=== PATIENT | male | born 1995 | race Caucasian/White ===

== ENCOUNTER 2021-01-31 00:05 | Emergency (ER) | payer SELFPAY ==
[2021-01-31 00:06] VITALS: BP 166/100; PULSE 108; RESP 16; TEMP 36.7; O2SAT 97; BMI 29.2
--- NOTE | 2021-01-31 00:20 | PC.NURSE ---
called lab for lab draw for PD
--- NOTE | 2021-01-31 00:31 | HMH.EDMCLR ---
ED Disposition Clinical Impression: Medical clearance for incarceration Disposition: Home, Self-Care Condition on Discharge: Good Instructions: DI for Alcohol Use Disorder Additional Instructions: see pcp for follow up Referrals: Chris Spence MD [Primary Care Provider] - - Critical Care Critical Care Time: No Attestation: On 01/31/21, the high probability of a clinically significant, sudden or life threatening deterioration of the following system(s) required my full and direct attention, intervention and personal management. The time I documented below is in addition to time spent performing reported procedures but includes the following listed in this critical care notation. Medical Decision Making - Medical Records Medical records reviewed: Yes: I reviewed the patient's medical records. - Benji Inquiry Pt receiving controlled substance: No Vital Signs: 01/31/21 00:06 Temperature 98.1 F Temperature Source Oral Pulse Rate [Left Radial] 108 H Respiratory Rate 16 Blood Pressure [Right Arm] 166/100 H Blood Pressure Mean [Right Arm] 122 Blood Pressure Source [Right Arm] Automatic Cuff Blood Pressure Position [Right Arm] Sitting 02 Sat by Pulse Oximetry 97 Oxygen Delivery Method Room Air - Lab Data Lab results reviewed: Yes: I reviewed the patient's lab results. Medical Clearance HPI - General Chief complaint: Medical Clearance Stated complaint: Medical Clearance and Blood draw Time Seen by Provider: 01/31/21 00:31 Mode of Arrival: Ambulatory Source of Information: Patient, Medical Record Limitations: No Limitations Description of Symptoms (Recalled from ER Triage Doc. by RN): Pt brought in by PD for medical clearance. Pt has no complaints reported to staff. - History of Present Illness HPI Narrative: no specific c/o MD complaint: medical clearance requested Onset (ago): hour(s) Reason for Medical Clearance: intoxication Place: street Alleged Intoxication: Yes Traumatic Symptoms: denies traumatic injury Associated Symptoms: denies other symptoms Treatments Prior to Arrival: none Home medications: Home Medications Medication Instructions Recorded Confirmed No Known Home Medications 01/31/21 01/31/21 Allergies/Adverse reactions: Allergies Allergy/AdvReac Type Severity Reaction Status Date / Time No Known Allergies Allergy Verified 10/09/19 17:51 [facility] History - Hepatitis A Screen Drug use history?: No High risk sexual behaviors?: No History of sexually transmitted infection?: No Currently employed?: No Childcare worker?: No Do you have indoor plumbing?: Yes Do you have electricity?: Yes Attestation statement:: This patient has been screened for Hepatitis A risk factors. I have reviewed the patient's past medical history: Yes ROS Obtained: Yes All systems reviewed & no additional complaints - Constitutional Constitutional: Denies fever(s) - Eyes Eyes: Denies change in vision - ENT Ears, Nose, Mouth, and Throat: Denies sore throat - Cardiovascular Cardiovascular: Denies chest pain - Respiratory Respiratory: Denies shortness of breath - Gastrointestinal Gastrointestingal: Denies: abdominal pain - Genitourinary Male Genitourinary: Denies hematuria - Musculoskeletal Musculoskeletal: Denies joint pain - Integumentary/Breasts Skin/Breast: Denies lesions - Neurologic Neurologic: Denies focal weakness, Denies seizure-like activity Physical Exam - General General appearance: alert - Head Head exam: normocephalic - Eye Eye exam: Present: PERRL, EOMI - ENT ENT exam: Present: mucous membranes moist - Neck Neck exam: Present: trachea midline - Respiratory Respiratory exam: Present: normal lung sounds bilaterally. Absent: respiratory distress - Cardiovascular Cardiovascular exam: Present: regular rate - Abdominal Exam Abdominal exam: Present: soft. Absent: tenderness - Extremities Exam Extremities exam: Present:
[2021-01-31 00:33] VITALS: BP 148/94; PULSE 105; RESP 18; O2SAT 97
[2021-01-31 00:41] VITALS: BP 145/87; PULSE 108; RESP 18; TEMP 36.8; O2SAT 97
== END 2021-01-31 00:45 | disposition home or self-care (01) ==
PROVIDERS: Emergency Provider Emergency Medicine; PCP Family Medicine
DX: Z02.83 Encounter for blood-alcohol and blood-drug test (principal)
CPT/HCPCS: 99282

== ENCOUNTER 2021-07-29 12:34 | Emergency (ER) | payer OTHER, SELFPAY ==
[2021-07-29 14:05] VITALS: BP 138/95; PULSE 80; RESP 18; TEMP 36.8; O2SAT 98; BMI 30.8
[2021-07-29 14:21] LABS: Apearance,Urine Cloudy (Clear); Color,Urine Dark Yellow (Yellow); Protein,Urine Trace (Negative); Specific Gravity, Urine 1.025 (1.005-1.030)
[2021-07-29 14:22] LABS: Bilirubin,Urine Negative (Negative); Blood, Urine Trace (Negative); Glucose,Urine (UA) Negative (Negative); Ketones,Urine Negative (Negative); UTC Leukocyte Esterase,Urine 1+ (Negative); Urobilinogen,Urine 0.2 EU/dl (0.2)
[2021-07-29 14:23] LABS: UTC Nitrate,Urine Positive (Negative)
--- NOTE | 2021-07-29 14:37 | HMH.EDUTC ---
[facility] [place] Disposition Clinical Impression: UTI (urinary tract infection) Qualifiers: Urinary tract infection type: site unspecified Hematuria presence: with hematuria Qualified Code(s): N39.0 - Urinary tract infection, site not specified Disposition: Home, Self-Care Condition on Discharge: Good Instructions: DI for Urinary Tract Infection (UTI) Additional Instructions: Drink plenty of fluids. Take tylenol or ibuprofen for pain or fever. Take the medications as directed. Follow up with your regular doctor. GO TO THE ER FOR ANY WORSENING SYMPTOMS Prescriptions: Sulfamethoxazole/Trimethoprim [Bactrim DS tablet] 1 each PO BID 10 Days #20 tab Transmission Status: Received by [facility] Referrals: Chris Spence MD [Primary Care Provider] - Time of Disposition: 14:42 Medical Decision Making - Medical Records Medical records reviewed: No: I reviewed the patient's medical records. - Benji Inquiry Pt receiving controlled substance: No Vital Signs: 07/29/21 14:05 07/29/21 14:38 Temperature 98.3 F 98.3 F Temperature Source Oral Pulse Rate 80 Pulse Rate [Left] 80 Respiratory Rate 18 18 Blood Pressure 138/95 H Blood Pressure [Right Arm] 138/95 H Blood Pressure Mean [Right Arm] 109 02 Sat by Pulse Oximetry 98 - Lab Data Lab results reviewed: Yes: I reviewed the patient's lab results. Lab Results 07/29/21 14:20: Urine Color Dark yellow, Urine Appearance Cloudy, Urine pH 7.0, Ur Specific [place] 1.025, Urine Protein Trace, Urine Glucose (UA) Negative, Urine Ketones Negative, Urine Blood Trace, Urine Nitrate Positive A, Urine Bilirubin Negative, Urine Urobilinogen 0.2, Ur Leukocyte Esterase 1+ A Orders (Tests/Meds): ORDERS Category Date Time Status Urine Culture Stat Micro 07/29/21 14:00 Received [facility] [place] HPI - General Stated complaint: UTI Time Seen by Provider: 07/29/21 14:15 Mode of Arrival: Ambulatory Source of Information: Patient Limitations: No Limitations Description of Symptoms (Recalled from Triage Doc. by RN): pt c/o of burning with urination x2 days. HEENT Symptoms (Recalled from RN notes): No Resp Symptoms (Recalled from RN notes): No Skin Symptoms (Recalled from RN notes): No MS Symptoms (Recalled from RN notes): No Functional Status (Recalled from RN notes): wnl - History of Present Illness Provider Complaint: He states that for the past 4 days he has had burning with urination and he has felt kind of bad. He denies any fever, chills, back pain. - Related Data Previous Rx's Medication Instructions Recorded Sulfamethoxazole/Trimethoprim 1 each PO BID 10 Days #20 tab 07/29/21 [Bactrim DS tablet] Allergies Allergy/AdvReac Type Severity Reaction Status Date / Time No Known Allergies Allergy Verified 10/09/19 17:51 - Worker's Comp Is this a Worker's Comp case?: No [facility] History - Hepatitis A Screen Drug use history?: No High risk sexual behaviors?: No History of sexually transmitted infection?: No Currently employed?: No Childcare worker?: No Do you have indoor plumbing?: Yes Do you have electricity?: Yes Attestation statement:: This patient has been screened for Hepatitis A risk factors. I have reviewed the patient's past medical history: Yes ROS Obtained: Yes All systems reviewed & no additional complaints - Constitutional Constitutional: Denies chills, Denies fever(s), Reports poor appetite, Reports malaise - Eyes Eyes: Denies eye discharge - ENT Ears, Nose, Mouth, and Throat: Denies dizziness, Denies otalgia, Denies sore throat - Cardiovascular Cardiovascular: Denies chest pain - Respiratory Respiratory: Denies chest congestion, Denies cough, Denies stridor, Denies wheezing - Gastrointestinal Gastrointestingal: Denies: abdominal pain, diarrhea, nausea, vomiting - Genitourinary Male Genitourinary: Reports as per HPI - Musculoskeletal Musculoskeletal: Denies back pain Physical Exam - General Gener
[2021-07-29 14:38] VITALS: BP 138/95; PULSE 80; RESP 18; TEMP 36.8
== END 2021-07-29 14:59 | disposition home or self-care (01) ==
PROVIDERS: Emergency Provider Nurse Practitioner Family; PCP Family Medicine
DX: N30.00 Acute cystitis without hematuria (principal)
CPT/HCPCS: 81003; 87086; 87088; 87186; 99202; G0463

== ENCOUNTER 2021-12-28 14:16 | Emergency (ER) | payer OTHER, SELFPAY ==
[2021-12-28 14:21] VITALS: BP 162/92; PULSE 65; RESP 18; TEMP 36.9; O2SAT 97; BMI 30.2
--- NOTE | 2021-12-28 14:30 | XR_ITS ---
PROCEDURE INFORMATION: Exam: XR Chest Exam date and time: 12/28/2021 2:50 PM Age: 26 years old Clinical indication: Cough TECHNIQUE: Imaging protocol: XR of the chest. Views: 1 view. COMPARISON: No relevant prior studies available. FINDINGS: Subtle reticulonodular opacities in the right upper lung appear to be partially calcified and are felt to be of chronic etiology. No significant acute interstitial or airspace disease otherwise noted. No pleural effusion or pneumothorax. Normal cardiomediastinal silhouette and central airways. No acute skeletal abnormality or aggressive osseous lesion. IMPRESSION: Findings in the right upper lobe appear to be of chronic etiology or related to superimposition of costochondral chest soft tissues. Early infectious/inflammatory pneumonia is also within the differential diagnosis. No other acute thoracic pathology identified.
--- NOTE | 2021-12-28 14:44 | ECG_ITS ---
APPROVED REPORT Exam: Resting ECG HR:65 bpm ECG Measurements Heart Rate 65 AXES [place] 141 P 43 QRSd 90 QRS 79 QT 371 T 11 QTc 383 Conclusion SINUS RHYTHM NORMAL ECG UNCONFIRMED REPORT Electronically signed by : Chris Ribeiro MD 12/28/2021 20:09:06
[2021-12-28 15:12] VITALS: BMI 30.2
--- NOTE | 2021-12-28 15:20 | PC.NURSE ---
ED MD at speaking with patient
[2021-12-28 15:25] LABS: Basophils # 0.2 K/mm3 (0-0.2); Basophils % 2.2 % (0.1-2.0); Eosinophils # 0.2 K/mm3 (0.0-0.4); Eosinophils % 3.1 % (0.1-12.0); Hematocrit 46.7 % (42.0-52.0); Hemoglobin 16.2 g/dL (14.1-18.0); Lymphocytes # 1.8 K/mm3 (0.7-4.5); Lymphocytes % 25.2 % (10-50); Mean Corpuscular HGB Conc 34.8 g/dL (31.8-35.4); Mean Corpuscular Hemoglobin 30.1 pg (27.0-31.2); Mean Corpuscular Volume 86.5 fl (80-94); Mean Platelet Volume 8.9 fl (7.4-10.4); Monocytes # 0.4 K/mm3 (0.1-1.0); Monocytes % 5.7 % (1.7-9.3); Neutrophils # 4.7 K/mm3 (1.8-7.8); Neutrophils % 63.8 % (37.0-80.0); Platelet Count 277 K/mm3 (142-424); Red Cell Distribution Width 12.8 % (11.5-17.5); White Blood Count 7.3 K/mm3 (4.8-10.8)
[2021-12-28 15:28] LABS: Chloride 106 mmol/L (98-107); Sodium 140 mmol/L (136-145)
[2021-12-28 15:29] LABS: Potassium 3.7 mmoL/L (3.5-5.1)
[2021-12-28 15:31] LABS: Alanine Aminotransferase 64 U/L (12-78); Albumin Level 4.6 g/dl (3.5-5.0); Albumin/Globulin Ratio 1.5 (1.1-1.8); Alkaline Phosphatase 62 U/L (38-126); Anion Gap 14.7 mEq/L (5-15); Aspartate Amino Transferase 44 U/L (17-59); Bilirubin,Total 0.5 mg/dl (0.2-1.3); Blood Urea Nitrogen 12 mg/dl (9-20); Calcium 9.9 mg/dl (8.4-10.2); Carbon Dioxide 23 mmol/L (22.0-30.0); Creatinine Clearance Estimated 186 mL/min (50-200); Estimated Glomerular Filt Rate 101 ml/min (>60); GFR (African American) 122 ML/MIN (>60); Glucose 134 mg/dl (74-100); Total Protein,Serum 7.6 g/dl (6.3-8.2)
--- NOTE | 2021-12-28 15:37 | HMH.EDANX ---
ED Disposition Clinical Impression: Acute anxiety Right upper lobe pneumonia Qualifiers: Pneumonia type: due to unspecified organism Qualified Code(s): J18.9 - Pneumonia, unspecified organism Disposition: Home, Self-Care Condition on Discharge: Good Instructions: Pneumonia-Adult Prescriptions: Doxycycline Monohydrate [Doxycycline Crane 100mg Tab] 100 mg PO Q12 #20 tab Transmission Status: Pending to [facility] Referrals: Chris Spence MD [Primary Care Provider] - - Critical Care Critical Care Time: No Attestation: On 12/28/21, the high probability of a clinically significant, sudden or life threatening deterioration of the following system(s) required my full and direct attention, intervention and personal management. The time I documented below is in addition to time spent performing reported procedures but includes the following listed in this critical care notation. Medical Decision Making - Medical Records Medical records reviewed: Yes: I reviewed the patient's medical records. - Benji Inquiry Pt receiving controlled substance: No Vital Signs: 12/28/21 14:21 Temperature 98.5 F Temperature Source Oral Pulse Rate [Left Radial] 65 Respiratory Rate 18 Blood Pressure [Right Arm] 162/92 H Blood Pressure Mean [Right Arm] 115 02 Sat by Pulse Oximetry 97 Oxygen Delivery Method Room Air - Lab Data Lab Results 12/28/21 15:10: WBC 7.3, RBC 5.40, Hgb 16.2, Hct 46.7, MCV 86.5, MCH 30.1, MCHC 34.8, RDW 12.8, Plt Count 277, MPV 8.9, Neut % (Auto) 63.8, Lymph % (Auto) 25.2, Crane % (Auto) 5.7, Eos % (Auto) 3.1, Baso % (Auto) 2.2 H, Neut # (Auto) 4.7, Lymph # (Auto) 1.8, Crane # (Auto) 0.4, Eos # (Auto) 0.2, Baso # (Auto) 0.2 12/28/21 15:10: Sodium 140, Potassium 3.7, Chloride 106, Carbon Dioxide 23, Anion Gap 14.7, BUN 12, Creatinine 0.90, Estimated Creat Clear 186, Estimated GFR 101, Est GFR ( Amer) 122, Glucose 134 H, Calcium 9.9, Total Bilirubin 0.5, AST 44, ALT 64, Alkaline Phosphatase 62, Troponin I < 0.01, NT-Pro-B Natriuret Pep 38.8, Total Protein 7.6, Albumin 4.6, Globulin 3.0, Albumin/Globulin Ratio 1.5 Result diagrams: 12/28/21 15:10 12/28/21 15:10 Orders (Tests/Meds): ORDERS Category Date Time Status Brain Natriuretic Peptide Stat Lab 12/28/21 15:10 Results Comprehensive Metabolic Panel Stat Lab 12/28/21 15:10 Results TSH [Thyroid Stimulating Hormone] Stat Lab 12/28/21 15:10 Results Trop I [Troponin I] Stat Lab 12/28/21 15:10 Results Troponin I Q3H Lab 12/28/21 17:30 Ordered Troponin I Q3H Lab 12/28/21 20:30 Ordered - Radiology Data #1 Image(s): Chest Image Reviewed: Yes I reviewed the patient's radiology results, Yes I reviewed the patient's radiology image, Yes I have reviewed radiologist's interpretation IMPRESSION: Findings in the right upper lobe appear to be of chronic etiology or related to superimposition of costochondral chest soft tissues. Early infectious/inflammatory pneumonia is also within the differential diagnosis. No other acute thoracic pathology identified. - ECG Data Tracing #1 I reviewed this ECG and interpreted as documented below: ECG initial impression date: 12/28/21 ECG initial impression time: 14:44 ECG normal with no acute: arrhythmias, ischemia, conduction abnormalities, chamber hypertrophy Normal Sinus Rhythm: Yes - Reevaluation(s) Time: 15:48 Reevaluation #1: On reevaluation, patient is feeling better. Work-up benign. However the patient does have evidence of pneumonia. Patient be placed on a short course of antibiotic therapy. Patient needs follow-up with PCP. Given strict return precautions. Verbalized understanding. Medical Decision Narrative: 26-year-old male presenting with some palpitations and chest discomfort. Patient is hemodynamically stable at this moment. Do believe symptoms related to anxiety. Patient is also had some cough concerning for pneumonia. Work-up initiated. Anxie
[2021-12-28 15:41] LABS: NT Pro Brain Natriuretic Pep. 38.8 pg/mL (0-125)
[2021-12-28 15:45] LABS: Troponin I < 0.01 ng/ml (0.00-0.034)
--- NOTE | 2021-12-28 15:50 | PC.NURSE ---
ED MD speaking with patient at BS
[2021-12-28 16:03] LABS: Thyroid Stimulating Hormone 2.69 uIU/mL (0.465-4.68)
[2021-12-28 16:47] VITALS: BP 153/96; PULSE 57; RESP 20; TEMP 36.9; O2SAT 98
== END 2021-12-28 16:48 | disposition home or self-care (01) ==
PROVIDERS: Emergency Provider Emergency Medicine; PCP Family Medicine
DX: J18.9 Pneumonia, unspecified organism (principal); F41.9 Anxiety disorder, unspecified; F17.210 Nicotine dependence, cigarettes, uncomplicated
CPT/HCPCS: 36415; 71045; 80053; 83880; 84443; 84484; 85025; 93005

== ENCOUNTER 2022-08-08 17:27 | Emergency (ER) | payer OTHER, SELFPAY ==
[2022-08-08 17:50] VITALS: BP 131/86; PULSE 69; RESP 18; TEMP 36.7; O2SAT 100; BMI 30.2
[2022-08-08 18:12] LABS: Influenza A, PCR Not Detected (NotDetected); Influenza B, PCR Not Detected (NotDetected)
[2022-08-08 18:12] LABS: UTC Strep Screen (Rapid) Negative (Negative)
[2022-08-08 18:16] VITALS: BP 131/86; PULSE 69; RESP 18; TEMP 36.7; O2SAT 100
--- NOTE | 2022-08-08 18:25 | EXP.UTC ---
Discharge Plan Disposition Patient Disposition: Home, Self-Care Condition: Good Prescriptions Prescriptions: New azithromycin [azithromycin] 250 mg tablet 250 mg PO DIRECTED Qty: 4 0RF Rx Instructions: (1) tablet day #2 thru #5- first dose given in [facility] No Action doxycycline monohydrate 100 MG tablet 100 mg PO Q12 Qty: 20 0RF sulfamethoxazole-trimethoprim 1 EACH tablet 1 each PO BID 10 Days Qty: 20 0RF Referrals Follow up/Referrals: Lily Howard APRN [Primary Care Provider] - See instructions Activity Restrictions/Add. Instructions Additional Instructions/Restrictions: Start antibiotics today be sure to take it as ordered with the full length of time although you should start feeling better in 24-48 hours. Change toothbrush and toothpaste 24-48 hours after starting antibiotics Tylenol or Motrin as needed for fever or pain Encourage fluids, water, Gatorade, Powerade, try cold fluids, popsicles, ice cream will make it feel better You are contagious for 24 hours. Avoid kissing anyone, no eating or drinking after anyone. You are contagious. Follow-up the ER for new or worsening symptoms or no noticeable improvement over the next 24-48 hours. Follow-up with PCP this week. Clinical Impressions Clinical Impression: Strep sore throat Instructions Patient Instructions: DI for Strep Throat Discharge ED Provider: Lucila ([facility] [place] [facility] [place] General Stated complaint: bodyaches, congestion, chills Mode of Arrival: Ambulatory Source of Information: Patient Limitations: No Limitations Time Seen by Provider: 08/08/22 18:00 Description of Symptoms (Recalled from Triage Doc. by RN): PATIENT C/O BODY ACHES, SORE THROAT, COUGH, AND HEADACHE X 2 DAYS HEENT Symptoms (Recalled from RN notes): Yes Resp Symptoms (Recalled from RN notes): Yes Skin Symptoms (Recalled from RN notes): No MS Symptoms (Recalled from RN notes): No Functional Status (Recalled from RN notes): WNL History of Present Illness Provider Complaint: 26 yr old male presents for sore throat,ESTRELLA, body aches, bad breath and bad taste in mouth that started this am. Related Data Previous Rx's Medication Instructions Recorded sulfamethoxazole 800 1 each PO BID 10 days #20 tabs 07/29/ mg-trimethoprim 160 mg tablet doxycycline monohydrate 100 mg 100 mg PO Q12 #20 tabs 12/28/21 tablet azithromycin 250 mg tablet 250 mg PO DIRECTED #4 tabs 08/08/22 Allergies Allergy/AdvReac Type Severity Reaction Status Date / Time No Known Allergies Allergy Verified 10/09/19 17:51 Worker's Comp Is this a Worker's Comp case?: No [facility] Disclaimer: The information contained in this section may have been updated after the patient was seen, as this information can be updated by other users. 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) Smoking Status: Unknown if ever smoked alcohol intake: never current occupational status: other Travel in the last 8 weeks: None ROS Obtained: Yes All systems reviewed & no additional complaints except as documented Constitutional Constitutional: Reports system reviewed and no additional complaints, except as documented, Reports as per HPI, Reports body ache and Reports headache(s) Eyes Eyes: Reports system reviewed and no additional complaints, except as documented ENT Ears, Nose, Mouth, and Throat: Reports system reviewed and no additional complaints, except as documented, Reports as per HPI, Reports halitosis, Reports headache(s) and Reports sore throat Cardiovascular Cardiovascular: Reports system reviewed and no additional complaints, except as documented Respiratory Respiratory: Reports system reviewed and no additional complaints, except as documented and Reports as per HPI Gastrointestinal Gastrointesting
[2022-08-08 20:39] LABS: Coronavirus 19, PCR Detected (NotDetected)
== END 2022-08-08 18:40 | disposition home or self-care (01) ==
PROVIDERS: Emergency Provider Nurse Practitioner Family; PCP Nurse Practitioner Family
DX: J02.0 Streptococcal pharyngitis (principal)
CPT/HCPCS: 87880; 99212; C9803; G0463; U0003; U0005

== ENCOUNTER 2022-10-02 19:22 | Emergency (ER) | payer OTHER, SELFPAY ==
[2022-10-02 19:45] VITALS: BP 144/81; PULSE 81; RESP 18; TEMP 36.6; O2SAT 99; BMI 30.2
--- NOTE | 2022-10-02 20:01 | EXP.UTC ---
Discharge Plan Disposition Patient Disposition: Home, Self-Care Condition: Good Prescriptions Prescriptions: New guaifenesin [Mucinex] 600 mg tablet extended release 12hr 1,200 mg PO BID PRN (Reason: cough) Qty: 20 0RF prednisone 10 mg tablet 10 mg PO BID 5 Days Qty: 10 0RF azithromycin [Zithromax Z-El] 250 mg tablet See Rx Instructions .ROUTE .COMPLEX 5 Days Qty: 6 0RF Rx Instructions: For 250 mg dose pack: take 500 mg today (day 1), then 250 mg for 4 days (days 2-5) No Action omeprazole 40 mg capsule,delayed release(DR/EC) 40 mg PO DAILY Referrals Follow up/Referrals: Provider,Referral, MD [Primary Care Provider] - See instructions Activity Restrictions/Add. Instructions Additional Instructions/Restrictions: Start antibiotic. Be sure to complete entire prescription even if feeling better Monitor temp. Tylenol every 4 hours as needed and / or ibuprofen every 6 hours as needed ( As long as your primary care physician has told you that it ok to take both. For fever/aches/pains ER if no less than 101 despite Tylenol or Motrin Humidifier/vaporizer or hot steamy shower Inhaler every 4-6 hours as needed like we discussed. If unsure how to use it, ask pharmacist to demonstrate how. Should help open airways and improve cough, wheezing, and shortness of breath Mucinex during the day for your cough and cough suppressant only at night. Be sure to drink lots of water. I *Start steroid tomorrow. Helps with inflammation therefore, cough and wheezing. Follow directions on the package. Reviewed side effects. Patient reports taking them before. Follow up IMMEDIATELY for new or worsening of symptoms OR no noticeable improvement over the next 48-72 hours. 911 immediately for any life threatening symptoms such as chest pain or difficulty breathing Clinical Impressions Clinical Impression: Bronchitis Instructions Patient Instructions: Acute Bronchitis, Asthma -- Adult Discharge ED Provider: Virginia Peters [facility] General Stated complaint: soa, cough Mode of Arrival: Ambulatory Source of Information: Patient Limitations: No Limitations Time Seen by Provider: 10/02/22 20:01 Description of Symptoms (Recalled from Triage Doc. by RN): PATIENT C/O WHEEZING, SOA, AND COUGH SINCE THIS MORNING HEENT Symptoms (Recalled from RN notes): No Resp Symptoms (Recalled from RN notes): Yes Skin Symptoms (Recalled from RN notes): No MS Symptoms (Recalled from RN notes): No Functional Status (Recalled from RN notes): WNL History of Present Illness Provider Complaint: Patient states that he woke up in the middle of the night feeling SOA, cough, congestion and wheezing States that he has asthma and thought it may have been from that but still had no relief after inhaler States that he gets bronchititis and feels like it does when he has that States that he had Pneumonia when he was younger States that he isnt coughing anything up but today he has still felt like he has some chest congestion and felt a little SOA at times Denies fever denies chills Related Data Home Medications Medication Instructions Recorded Confirmed omeprazole 40 mg capsule,delayed 40 mg PO DAILY GERD 10/02/22 10/02/22 release Previous Rx's Medication Instructions Recorded azithromycin 250 mg tablet See Rx Instructions PO .COMPLEX 5 10/02/22 (Zithromax Z-El) days #6 tabs guaifenesin 600 mg tablet, 1,200 mg PO BID PRN cough #20 tabs 10/02/22 extended release 12 hr (Mucinex) prednisone 10 mg tablet 10 mg PO BID 5 days #10 tabs 10/02/22 Allergies Allergy/AdvReac Type Severity Reaction Status Date / Time No Known Allergies Allergy Verified 10/09/19 17:51 Worker's Comp Is this a Worker's Comp case?: No [facility] Disclaimer: The information contained in this section may have been updated after the patient was seen, as this information can be updated by other users. Medical History (
[2022-10-02 20:43] VITALS: BP 144/81; PULSE 81; RESP 18; TEMP 36.6; O2SAT 99
== END 2022-10-02 20:47 | disposition home or self-care (01) ==
PROVIDERS: Emergency Provider Nurse Practitioner
DX: J40 Bronchitis, not specified as acute or chronic (principal); J45.909 Unspecified asthma, uncomplicated
CPT/HCPCS: 96372; 99212; 99214; G0463; J0696

== ENCOUNTER 2022-10-19 19:06 | Emergency (ER) | payer OTHER, SELFPAY ==
[2022-10-19 19:20] VITALS: BP 148/79; PULSE 88; RESP 20; TEMP 36.9; O2SAT 95; BMI 30.2
--- NOTE | 2022-10-19 19:24 | EXP.UTC ---
Discharge Plan Disposition Patient Disposition: Home, Self-Care Condition: Good Prescriptions Prescriptions: New amoxicillin [amoxicillin] 500 mg tablet 500 mg PO TID 10 Days Qty: 30 0RF benzonatate [benzonatate] 100 mg capsule 100 mg PO TIDP PRN (Reason: Cough) Qty: 30 0RF methylprednisolone 4 mg Tablets,Dose Pack 4 mg PO DIRECTED Qty: 21 0RF No Action omeprazole 40 mg capsule,delayed release(DR/EC) 40 mg PO DAILY Referrals Follow up/Referrals: Provider,Referral, MD [Primary Care Provider] - See instructions Activity Restrictions/Add. Instructions Additional Instructions/Restrictions: Drink plenty of fluids. Take tylenol or ibuprofen for pain or fever. Take the medications as directed. Follow up with your regular doctor. GO TO THE ER FOR ANY WORSENING SYMPTOMS Clinical Impressions Clinical Impression: Sinusitis, Pharyngitis Stand Alone Forms Stand Alone Forms: Work/School Release Instructions Patient Instructions: DI for Sinusitis Discharge ED Provider: Neptali Colvin [facility] General Stated complaint: Congestion,sore throat Time Seen by Provider: 10/19/22 19:24 History of Present Illness Provider Complaint: He states that for the past 1 day he has had sore throat, body aches, chills, fever and malaise. Related Data Home Medications Medication Instructions Recorded Confirmed omeprazole 40 mg capsule,delayed 40 mg PO DAILY GERD 10/02/22 10/19/22 release Previous Rx's Medication Instructions Recorded amoxicillin 500 mg tablet 500 mg PO TID 10 days #30 tabs 10/19/22 benzonatate 100 mg capsule 100 mg PO TIDP PRN Cough #30 caps 10/19/22 methylprednisolone 4 mg tablets in 4 mg PO DIRECTED #21 tabs 10/19/22 a dose pack Allergies Allergy/AdvReac Type Severity Reaction Status Date / Time No Known Allergies Allergy Verified 10/09/19 17:51 [facility] Disclaimer: The information contained in this section may have been updated after the patient was seen, as this information can be updated by other users. Medical History Anxiety Asthma COPD (chronic obstructive pulmonary disease) Depression Social History Smoking Status: Unknown if ever smoked alcohol intake: never current occupational status: other Travel in the last 8 weeks: None ROS Obtained: Yes All systems reviewed & no additional complaints except as documented Constitutional Constitutional: Reports poor appetite Eyes Eyes: Reports system reviewed and no additional complaints, except as documented ENT Ears, Nose, Mouth, and Throat: Reports as per HPI Cardiovascular Cardiovascular: Reports system reviewed and no additional complaints, except as documented and Denies chest pain Respiratory Respiratory: Denies shortness of breath, Reports chest congestion, Reports cough, Denies stridor and Denies wheezing Gastrointestinal Gastrointestingal: Reports system reviewed and no additional complaints, except as documented; Denies abdominal pain, diarrhea or vomiting Musculoskeletal Musculoskeletal: Reports system reviewed and no additional complaints, except as documented and Denies arthralgias Integumentary/Breasts Skin/Breast: Reports system reviewed and no additional complaints, except as documented and Denies rash Neurologic Neurologic: Denies paresthesias Allergic/Immunologic Allergic/Immunologic: Denies wheezing Physical Exam General General appearance: alert and in no apparent distress Eye Eye exam: Present normal appearance, PERRL and EOMI ENT ENT exam: Present mucous membranes moist and normal external ear exam Expanded ENT Exam External ear exam: Present normal external inspection TM/Canal exam: Bilateral TM: erythema and bulging Nose exam: Absent sinus tenderness Nasal speculum exam: Bilateral: normal Mouth exam: Present normal external inspection; Absent drooli
[2022-10-19 19:37] LABS: UTC Strep Screen (Rapid) Negative (Negative)
[2022-10-19 19:46] VITALS: BP 148/79; PULSE 88; RESP 20; TEMP 36.9; O2SAT 95
== END 2022-10-19 20:29 | disposition home or self-care (01) ==
PROVIDERS: Emergency Provider Nurse Practitioner Family
DX: J32.9 Chronic sinusitis, unspecified (principal)
CPT/HCPCS: 87880; 99212; 99213; G0463

== ENCOUNTER → 2023-05-04 16:19 | Outpatient (CLI) | payer OTHER, SELFPAY ==
[2023-05-04 17:31] LABS: Basophils % 0.3 % (0.1-2.0); Eosinophils # 0.2 K/mm3 (0.0-0.4); Eosinophils % 2.1 % (0.1-12.0); Hematocrit 47.8 % (42.0-52.0); Hemoglobin 16.1 g/dL (14.1-18.0); Lymphocytes # 2.3 K/mm3 (0.7-4.5); Lymphocytes % 26.4 % (10-50); Mean Corpuscular HGB Conc 33.7 g/dL (31.8-35.4); Mean Corpuscular Hemoglobin 28.5 pg (27.0-31.2); Mean Corpuscular Volume 84.6 fl (80-94); Mean Platelet Volume 8.5 fl (7.4-10.4); Monocytes # 0.3 K/mm3 (0.1-1.0); Monocytes % 3.3 % (1.7-9.3); Neutrophils # 5.9 K/mm3 (1.8-7.8); Platelet Count 235 K/mm3 (142-424); Red Blood Count 5.65 M/mm3 (4.60-6.20); Red Cell Distribution Width 12.7 % (11.5-17.5); White Blood Count 8.6 K/mm3 (4.8-10.8)
[2023-05-04 17:49] LABS: D-Dimer 0.46 ug/mL (0.0-0.5)
[2023-05-04 17:58] LABS: Chloride 105 mmol/L (98-107); Potassium 3.7 mmoL/L (3.5-5.1); Sodium 142 mmol/L (136-145)
[2023-05-04 18:00] LABS: Alanine Aminotransferase 31 U/L (12-78); Aspartate Amino Transferase 26 U/L (17-59); Blood Urea Nitrogen 14 mg/dl (9-20); Estimated Glomerular Filt Rate 89 ml/min (>60); GFR (African American) 108 ML/MIN (>60)
[2023-05-04 18:01] LABS: Albumin Level 4.7 g/dl (3.5-5.0); Albumin/Globulin Ratio 1.7 (1.1-1.8); Alkaline Phosphatase 63 U/L (38-126); Anion Gap 15.7 mEq/L (5-15); Bilirubin,Total 1.4 mg/dl (0.2-1.3); Calcium 10.1 mg/dl (8.4-10.2); Carbon Dioxide 25 mmol/L (22.0-30.0); Cholesterol 224 mg/dl (140-200); Globulin 2.7 g/dL (1.3-3.2); Glucose 150 mg/dl (74-100); Total Protein,Serum 7.4 g/dl (6.3-8.2); Triglycerides 95 mg/dl (30-150); VLDL Cholesterol 19 mg/dL (0-40)
[2023-05-04 18:02] LABS: Chol/HDL Ratio 5.1 (1-3.5); HDL Cholesterol 44 mg/dl (40-60)
[2023-05-04 18:08] LABS: 25-OH Vitamin D, Total 66.9 ng/mL (30-100)
[2023-05-04 18:12] LABS: Direct LDL Cholesterol 143.57 mg/dL (100-129)
[2023-05-04 18:16] LABS: Troponin I < 0.01 ng/ml (0.00-0.034)
[2023-05-04 18:32] LABS: Thyroid Stimulating Hormone 1.87 uIU/mL (0.465-4.68)
== END ==
PROVIDERS: Visit Provider Student in an Organized Health Care Education/Training Program
DX: F41.9 Anxiety disorder, unspecified (principal); R53.83 Other fatigue; R94.31 Abnormal electrocardiogram [ECG] [EKG]; Q21.0 Ventricular septal defect; Z79.899 Other long term (current) drug therapy
CPT/HCPCS: 36415; 80053; 80061; 82306; 84443; 84484; 85025; 85378

== ENCOUNTER → 2023-05-04 20:56 | Outpatient (CLI) | payer OTHER, SELFPAY ==
[2023-05-04 21:38] LABS: Basophils % 0.4 % (0.1-2.0); Eosinophils # 0.2 K/mm3 (0.0-0.4); Eosinophils % 2.2 % (0.1-12.0); Hematocrit 48.5 % (42.0-52.0); Hemoglobin 16.4 g/dL (14.1-18.0); Lymphocytes # 2.7 K/mm3 (0.7-4.5); Lymphocytes % 26.3 % (10-50); Mean Corpuscular HGB Conc 33.9 g/dL (31.8-35.4); Mean Corpuscular Hemoglobin 28.6 pg (27.0-31.2); Mean Corpuscular Volume 84.5 fl (80-94); Mean Platelet Volume 9.6 fl (7.4-10.4); Monocytes # 0.5 K/mm3 (0.1-1.0); Monocytes % 5.1 % (1.7-9.3); Neutrophils # 6.8 K/mm3 (1.8-7.8); Platelet Count 265 K/mm3 (142-424); Red Blood Count 5.74 M/mm3 (4.60-6.20); Red Cell Distribution Width 12.8 % (11.5-17.5); White Blood Count 10.4 K/mm3 (4.8-10.8)
[2023-05-04 21:41] LABS: Alanine Aminotransferase 31 U/L (12-78); Albumin Level 5.2 g/dl (3.5-5.0); Albumin/Globulin Ratio 1.7 (1.1-1.8); Alkaline Phosphatase 70 U/L (38-126); Anion Gap 20.1 mEq/L (5-15); Aspartate Amino Transferase 29 U/L (17-59); Bilirubin,Total 1.5 mg/dl (0.2-1.3); Blood Urea Nitrogen 14 mg/dl (9-20); Calcium 10.1 mg/dl (8.4-10.2); Carbon Dioxide 22 mmol/L (22.0-30.0); Chloride 104 mmol/L (98-107); Chol/HDL Ratio 5.2 (1-3.5); Cholesterol 235 mg/dl (140-200); Estimated Glomerular Filt Rate 89 ml/min (>60); GFR (African American) 108 ML/MIN (>60); Glucose 99 mg/dl (74-100); HDL Cholesterol 45 mg/dl (40-60); Potassium 4.1 mmoL/L (3.5-5.1); Sodium 142 mmol/L (136-145); Total Protein,Serum 8.2 g/dl (6.3-8.2); Triglycerides 102 mg/dl (30-150); VLDL Cholesterol 20 mg/dL (0-40)
[2023-05-04 21:53] LABS: Direct LDL Cholesterol 151.82 mg/dL (100-129)
[2023-05-04 21:58] LABS: 25-OH Vitamin D, Total 62.6 ng/mL (30-100)
[2023-05-04 22:12] LABS: Thyroid Stimulating Hormone 1.48 uIU/mL (0.465-4.68)
== END ==
LOC: LAB.DROPOF 20:58
PROVIDERS: PCP Student in an Organized Health Care Education/Training Program; Visit Provider Student in an Organized Health Care Education/Training Program
DX: F41.9 Anxiety disorder, unspecified (principal); R53.83 Other fatigue; Z79.899 Other long term (current) drug therapy
CPT/HCPCS: 80053; 80061; 82306; 84443; 85025

== ENCOUNTER → 2023-05-05 08:45 | Outpatient (CLI) | payer OTHER, SELFPAY ==
--- NOTE | 2023-05-05 08:51 | CA_ITS ---
APPROVED REPORT EXAM: Comprehensive 2D, Doppler, and color-flow Echocardiogram [employer] Officer: CHANDRIKA Shaw, RVS Ht: 6 ft 2 in Wt: 217lbs BSA: 2.25 BP: 122/64 mmHg Indications: abn ekg, Murmur, Chest tightness, anxiety, panic attacks Echo Enhancing Agent Indication: Rule Out Septal Defect Agent(s) / Amount(s) Used: Agitated Saline 20 cc Comments: Negative for right to left shunt 2D Dimensions Aortic Root 3.03 cm M: 3.1 - 3.7 LA Volume 38.20 mL Left Atrium 2.91 cm M: 3.0 - 4.0 LA Volume Index 16.98 mL/m2 (M/F) 16-34 LVOT 2.01 cm (M/F) 1.5-2.5 M-Mode Dimensions RVDd 2.74 cm (0.9-2.6) LA Diam 3.48 cm (1.9-4.0) LVDd 4.56 cm (3.5-5.7) Ao Diam 3.06 cm (2.0-3.7) LVDs 2.62 cm (3.5-5.7) IVSd 0.95 cm (0.6-1.1) PWd 0.91 cm (0.6-1.1) EF (Teich) 73.70% EPSs 0.38 cm FS 42.50% EDV (Teich) 95.40 mL TAPSE 2.94 (<1.7) ESV (Teich) 25.10 mL LV Diastology E Decel Time 190.00 (160-240 msec) E/A Ratio 1.72 MED E' 9.40 (< 7 cm/sec) MED A' 13.90 cm/s E'/MED E' Ratio 10.04 (>14) LAT E' 17.30 (<10 cm/sec) LAT A' 11.40 cm/s E/LAT E' Ratio 5.46 (>14) Aortic Valve LVOT Max 129.00 (70-110 cm/s) LVOT VTI 25.60 cm AoV Peak Vadim. 140.00 (50-130 cm/s) AO Peak GR. 7.80 mmHg AO Mean GR. 3.90 (<5 mmHg) AO VTI 28.43 (18-25 cm) CHELO (VTI) 2.86 (2.5-4.5 cm2) Mitral Valve MV A Velocity 55.00 (40-130 cm/s) E/A Ratio 1.72 MV Decel. Time 190.00 (160-240 ms) Pulmonary Valve PV Peak Velocity 94.00 (50-150 cm/s) Tricuspid Valve TR P. Velocity 204.00 cm/s RAP Estimate 10.00 mmHg RVSP 26.60 mmHg Left Ventricle The left ventricle is normal size. The left ventricular systolic function is normal. The left ventricular ejection fraction is within the normal range. There is normal left ventricular wall thickness. There is normal LV segmental wall motion. The left ventricular diastolic function is normal. LVEF is 60%. Right Ventricle The right ventricle is normal size. The right ventricular systolic function is normal. There is normal right ventricular wall thickness. Atria The left atrium size is normal. The right atrium size is normal. There is no Doppler evidence of interatrial shunt. Saline bubble contrast intravenous injection does not demonstrate PFO. Aortic Valve The aortic valve opens well. There is no aortic valvular stenosis. No aortic regurgitation is present. Mitral Valve The mitral valve is normal in structure. No evidence of mitral valve stenosis. There is no mitral valve regurgitation noted. Tricuspid Valve Trace tricuspid regurgitation. RVSP is normal. Pulmonic Valve The pulmonary valve is normal in structure. Trace pulmonic regurgitation. Great Vessels The aortic root is normal in size. The ascending aorta is normal in size. IVC is normal in size and collapses >50% with inspiration. Pericardium There is no pericardial effusion. Other Information Study Quality: Adequate Conclusion Normal biventricular systolic function. No significant valvular disease. Agitated saline at rest and with Valsalva demonstrates no interatrial shunt. Electronically signed by : Gaby Blancas, 05/06/2023 00:07:01
== END ==
PROVIDERS: PCP Student in an Organized Health Care Education/Training Program; Visit Provider Student in an Organized Health Care Education/Training Program
DX: Q21.10 Atrial septal defect, unspecified (principal); R07.89 Other chest pain; R94.31 Abnormal electrocardiogram [ECG] [EKG]
CPT/HCPCS: 93306

== ENCOUNTER 2023-05-06 07:07 | Outpatient (CLI) | payer OTHER, SELFPAY ==
[2023-05-06 07:30] VITALS: BP 143/82; PULSE 60; RESP 17; TEMP 36.9; O2SAT 98
[2023-05-06 07:33] VITALS: BMI 27.6
[2023-05-06 07:50] VITALS: BP 137/76; PULSE 59; RESP 16; O2SAT 99
[2023-05-06 08:00] VITALS: BP 129/68; PULSE 54; RESP 16; O2SAT 98
[2023-05-06 08:05] VITALS: BP 134/70; PULSE 53; RESP 17; O2SAT 98
== END 2023-05-06 08:15 | disposition home or self-care (01) ==
LOC: RAD 07:07
PROVIDERS: PCP Student in an Organized Health Care Education/Training Program; Visit Provider Internal Medicine
DX: R07.89 Other chest pain (principal); F41.9 Anxiety disorder, unspecified; K21.9 Gastro-esophageal reflux disease without esophagitis; R94.31 Abnormal electrocardiogram [ECG] [EKG]
CPT/HCPCS: 75574; Q9967

== ENCOUNTER → 2023-08-19 08:43 | Outpatient (CLI) | payer OTHER, SELFPAY ==
--- NOTE | 2023-08-19 08:48 | XR_ITS ---
FINAL REPORT CLINICAL HISTORY: Right foot pain COMPARISON: None FINDINGS: RIGHT FOOT 3 views of the right foot were obtained. There is no acute fracture or dislocation. Visualized joint spaces are normally aligned. Soft tissues are unremarkable. IMPRESSION: No acute bony abnormality. Reviewed, Interpreted and Dictated by Cesario Ortiz MD Transcribed by Catina Hoyt Authenticated and [facility]
--- NOTE | 2023-08-19 08:48 | XR_ITS ---
FINAL REPORT CLINICAL HISTORY: Left foot pain COMPARISON: None FINDINGS: LEFT FOOT Three views of the left foot demonstrate no acute fracture or dislocation. The visualized joint spaces are normally aligned. The soft tissues are unremarkable. IMPRESSION: No acute bony abnormality. Reviewed, Interpreted and Dictated by Cesario Ortiz MD Transcribed by Catina Hoyt Authenticated and [facility]
== END ==
PROVIDERS: PCP Student in an Organized Health Care Education/Training Program; Visit Provider Nurse Practitioner Family
DX: M79.672 Pain in left foot (principal); M79.671 Pain in right foot; S99.921A Unspecified injury of right foot, initial encounter; B38.9 Coccidioidomycosis, unspecified
CPT/HCPCS: 73630; 87070; 87205

== ENCOUNTER 2025-07-20 08:30 | Emergency (ER) | payer OTHER, SELFPAY ==
[2025-07-20] VITALS (9 sets, daily range): BP systolic 131–204; BP diastolic 87–178; PULSE 56–96; RESP 18; TEMP 36.7; O2SAT 93–97; BMI 31.7
--- OUTSIDE RECORDS SUMMARY | 2025-07-20 08:37 | XMS_ITS | Clinical Summary ---
Author Organization Healthcare Address [address] 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 [employer] Name Role Phone Vivian Nino Primary Care Provider Unavailabl e Social History Tobacco Use Types Packs/Day Years Used Date Smoking Tobacco: Never Assessed Sex and Gender Information Value Date Recorded Sex Assigned at Not on file Legal Sex Male 7:42 PM EDT Gender Identity Not on file Sexual Orientation Not on file Plan of Treatment Health Maintenance Due Date Last Done Comments [facility]-Depression Screening 1994 [facility]-/Child/Adol SDOH Screenings 1994 [facility]-IPV Vaccines (2 of 3 - 4-dose series) 04/08/1999 03/11/1999 [facility]-Varicella Vaccines (1 of 2 - 13+ 2-dose series) 2007 [facility]- SDOH Screenings 2012 [facility]-Adult SDOH Screenings 2012 [facility]-Hepatitis B Vaccines (1 of 3 - 19+ 3-dose series) 2013 HPV Vaccines (1 - 3-dose SCDM series) 2021 [facility]-ADRHC-00 Vaccine (4 - 2024- season) 2025 03/05/2022, 08/06/2021, 11/06/2020 [facility]-Influenza Vaccine (#1) 04/30/202506/11, 06/03/2020 [facility]-DTaP,Tdap,and Td Vaccines (4 - Td or Tdap) 05/04/2033 05/04/2023, 03/11/2006, 03/11/1999 [facility]-Zoster Vaccines (1 of 2) 2044 [facility]-HIB Vaccines Aged Out No longer e ligible based on patient's age to complete this topic [facility]-Hepatitis A Vaccines Aged Out No longer eligible based on patient's age to complete this topic [facility]-Pneumococcal Vaccine: Pediatrics (0 to 5 Years) and At-Risk Patients (6 to 49 Years) Aged Out No longer eligible b ased on patient's age to complete this topic [facility]-Rotavirus Vaccines Aged Out No lo nger eligible based on patient's age to complete this topic Insurance [address] [place] [id number] [facility] MEDICAID Care Teams Supervisor [employer] Relationship Specialty Start Date End Date Vivian Nino PA [address] [facility] [place] [id number] PCP - General 08/30/22
--- NOTE | 2025-07-20 08:48 | CT_ITS ---
FINAL REPORT TECHNIQUE: After the administration of intravenous contrast, axial images were obtained through the abdomen and pelvis by computed tomography. This study was performed with technique to keep radiation doses as low as reasonably achievable, (ALARA). Individualized dose reduction techniques using automated exposure control or adjustment of the MA and/or KV according to the patient's size were employed. CLINICAL HISTORY: Vomiting blood FINDINGS: Abdomen: There is a ground glass nodule at the left lung base measuring 9 mm in diameter on image 12 of series 3. There is a low-attenuation focus in the right hepatic lobe measuring 7 mm. Gallbladder is unremarkable. The spleen is unremarkable. The adrenals are normal. The pancreas is unremarkable. The kidneys enhance appropriately. The aorta is normal in caliber. There is no free fluid or adenopathy. Small sliding-type hiatal hernia is present. Pelvis: The appendix is normal. The urinary bladder is decompressed. There is no free fluid or adenopathy. IMPRESSION: Ground glass nodule in the left lung base measuring 9 mm. Recommend 6-month follow-up chest CT per Fleischner criteria. Reviewed, Interpreted and Dictated by Cesario Ortiz MD Transcribed by Tiffanie Panda Authenticated and [facility]
--- NOTE | 2025-07-20 08:49 | ED_ITS ---
Discharge Plan Disposition Patient Disposition: Home, Self-Care Prescriptions Prescriptions: New famotidine [Pepcid] 40 mg tablet 40 mg PO DAILY Qty: 30 0RF No Action omeprazole 40 mg capsule,delayed release(DR/EC) 40 mg PO DAILY Qty: 90 3RF albuterol sulfate [Ventolin HFA] 90 mcg/actuation HFA aerosol inhaler See Rx Instructions .ROUTE .COMPLEX Qty: 8.5 5RF Dose Instruction: INHALE 2 PUFFS BY MOUTH EVERY 6 HOURS Rx Instructions: INHALE 2 PUFFS BY MOUTH EVERY 6 HOURS fluticasone propionate 44 mcg/actuation HFA aerosol inhaler 1 puff inhalation BID Qty: 10.6 10RF Rx Instructions: administer with spacer Referrals Follow up/Referrals: Dallin Perkins II, MD [Staff Physician, Gastroenterology] - See instructions Bernie Irizarry APRN [Primary Care Provider, Family Practice] - See instructions Activity Restrictions/Add. Instructions Additional Instructions/Restrictions: You likely have significantly reflux due to a sliding hiatal hernia. I am prescribing you Pepcid to take to help with your reflux symptoms. I am giving you referral to Dr. Perkins with the gastroenterology team as you will likely need a scope in the near future. If you do not hear from them in the next 2-3 business days, call them at the following number [phone]. If you develop any new or worsening symptoms, or if you become concerned for your help for any reason, return to the emergency department for evaluation Clinical Impressions Clinical Impression: Hiatal hernia, Coffee ground emesis Instructions Patient Instructions: DI for Diarrhea and Traveler's Diarrhea in Adults, DI for Diarrhea and Traveler's Diarrhea in Children, DI for Nausea in Adults, DI for Nausea in Children Print Language Print Language: [place] Discharge ED Provider: Ishmael Acevedo Adult [facility] General Chief complaint: Nausea/Vomiting/Diarrhea Stated complaint: vomiting blood Time Seen by Provider: 07/20/25 08:41 Mode of Arrival: Ambulatory Source of Information: Patient and Significant Other Description of Symptoms (Recalled from ER Triage Doc. by RN): Reports two episodes of coffee ground emesis this am. States he text a picture of it to his girlfriend who stated he needed to be seen in the ER. Reports seeing his pcp who requested for him to have an EGD done and that he has not followed up on that. Reports that he usually takes omeprazole however his PCP has quit prescribing it related to his need for EGD. States he has not had any alcohol in 2 weeks. History of Present Illness HPI narrative: Adelso Wilder is a 29F with a history of anxiety, gastric ulcer, significant acid reflux who presents the emergency department for complaints of coffee-ground emesis. Patient states that he was previously on omeprazole for 5 years, however 6 months ago, his PCP took him off of it due to concern for long- term effects. He states that his symptoms worsened after being taken off of it, so he started taking [id number] omeprazole and states that this helped some. He did run out of the xzyo-api-sahilzk medication 2 days ago. Last night, he stated while sleeping, he had severe acid reflux and burning in his throat. He stated that he has vomited twice and it has been dark, coffee ground in nature. He denies any severe abdominal pain. He does report continued burning in his throat. He states that he was post to be scheduled for an EGD, however they never called to schedule an appointment. Patient states that he previously would drink bourbon, however has not had anything to drink over the last 2 weeks. On arrival, patient is hypertensive with blood pressure 170/92, heart are within normal limits, afebrile, oxygen saturation 96% SpO2. Physical exam, stated above, revealed overall well-appearing male in no distress. He is alert and answering questions appropriately. Abdomen is soft, nontender nondistended. Cardiopulmonary exam is unremarkable. Related Data Previous Rx's ?Medication ?Instructions ?Recorded omeprazole 40 mg capsule,delayed 40 mg PO DAILY #90 ca ps 01/10/25 release albuterol sulfate 90 mcg/actuation See Rx Instructions .Route 03/20/25 aerosol inhaler (Ventolin HFA) .COMPLEX #8.5 grams fluticasone propionate 44 1 puff inhalation BID #10.6 grams 03/28/25 mcg/actuation HFA aerosol inhaler famotidine 40 mg tablet (Pepcid) 40 mg PO DAILY #30 ta bs 07/20/25 Allergies Allergy/AdvReac Type Severity Reaction Status Date / Time escitalopram (From Lexapro) AdvReac decreased Verified 01/10/25 10:[address] [facility] Disclaimer: The information contained in this section may have been updated after the patient was seen, as this information can be updated by other users. Medical History BMI 34.0-34.9,adult Gastric ulcer Vomiting Coffee ground emesis Open wound of right great toe Traumatic avulsion of nail plate of toe Right foot pain Injury of right great toe Pharyngitis Sinusitis Bronchitis Strep sore throat Depression Anxiety COPD (chronic obstructive pulmonary disease) Asthma Acute anxiety Right upper lobe pneumonia UTI (urinary tract infection) Medical clearance for incarceration Surgical History H/O inguinal hernia repair Family History Other No significant family history Social History Smoking Status: Current every day smoker alcohol intake: never substance use type: marijuana current occupational status: other Travel in the last 8 weeks?: None Have you lived/traveled outside [place] in past 30 days?: No Contact w/someone who lives/traveled outside US past 30 days?: No Exposure to someone with infectious disease in past 14 days?: No Do you have a fever (greater than 100.4 F or 38 C)?: No Have you tested positive for COVID-19?: No Exposed to someone with COVID-19 in past 14 days?: No Do you have a sore throat?: No Do you have a cough?: No Do you have any weakness?: No Do you have any diarrhea?: No Are you experiencing any unusual bleeding?: No Do you have any muscle aches/pain?: No Do you have any abdominal pain?: No Are you experiencing loss of taste or smell?: No Other Medical History Have you received the Flu Vaccine for this season: No Have you received the Pneumonia Vaccine: No ROS Obtained: Yes Systems reviewed as appropriate & no additional complaints except as documented Physical Exam General General appearance: alert and in no apparent distress Head Head exam: atraumatic Eye Eye exam: Present normal appearance ENT ENT exam: Present normal external ear exam Neck Neck exam: Present full ROM Chest Chest inspection: Present symmetric chest wall rise Respiratory Respiratory exam: Present normal lung sounds bilaterally; Absent respiratory distress Cardiovascular Cardiovascular exam: Present regular rate and normal rhythm Abdominal Exam Abdominal exam: Present soft; Absent distention, tenderness, guarding or rebound exam: Present deferred Extremities Exam Extremities exam: Present normal inspection Back Exam Back exam: Present normal inspection Neurological Exam Neurological exam: Present alert and oriented X3 Psychiatric Psychiatric exam: Present normal affect Skin Skin exam: Present warm and dry Medical Decision Making Medical Records Screening: Per USPSTF and CDC recommendations, given the prevalence of disease in our region, it is our hospital?s policy to screen for HIV and viral Hepatitis for all patients aged 18 and over and those with ongoing risk factors. Benji Inquiry Pt receiving controlled substance: No Vital Signs: 07/20/25 08:36 07/20/25 08:39 07/20/25 08:45 Temperature 98.0 F Temperature Source Oral Pulse Rate 92 H 80 Pulse Rate [Radial] 96 H Respiratory Rate 18 Blood Pressure 172/87 H 170/92 H Blood Pressure [Right Arm] 172/87 H Blood Pressure Mean [Right Arm] 115 Blood Pressure Source [Right Arm] Automatic Cuff Blood Pressure Position [Right Arm] Sitting 02 Sat by Pulse Oximetry 95 94 L 96 Oxygen Delivery Method Room Air Room Air Room Air 07/20/25 09:02 07/20/25 09:04 07/20/25 09:15 Temperature Temperature Source Pulse Rate 89 87 72 Pulse Rate [Radial] Respiratory Rate Blood Pressure 204/178 H 146/88 H 146/93 H Blood Pressure [Right Arm] Blood Pressure Mean [Right Arm] Blood Pressure Source [Right Arm] Blood Pressure Position [Right Arm] 02 Sat by Pulse Oximetry 96 97 93 L Oxygen Delivery Method Room Air Room Air Room Air 07/20/25 09:30 07/20/25 10:00 Temperature Temperature Source Pulse Rate 82 56 L Pulse Rate [Radial] Respiratory Rate Blood Pressure 147/97 H 131/88 Blood Pressure [Right Arm] Blood Pressure Mean [Right Arm] Blood Pressure Source [Right Arm] Blood Pressure Position [Right Arm] 02 Sat by Pulse Oximetry 96 95 Oxygen Delivery Method Room Air Room Air Lab Data Lab Results 07/20/25 08:32: Urine Color Yellow, Urine Appearance Clear, Urine pH 7.5, Ur Specific [place] 1.020, Urine Protein Negative, Urine Glucose (UA) Negative, Urine Ketones Negative, Urine Blood Negative, Urine Nitrate Negative, Urine Bilirubin Negative, Urine Urobilinogen 0.2, Ur Leukocyte Esterase Negative, Urine RBC None, Urine WBC Occasional, Ur Squamous Epith Cells None, Urine Bacteria None 07/20/25 08:44: WBC 10.9 H, RBC 5.47, Hgb 15.5, Hct 45.7, MCV 83.5, MCH 28.3, MCHC 33.9, RDW 12.2, Plt Count 299, MPV 10.4, Neut % (Auto) 68.2, Lymph % (Auto) 22.1, [place] % (Auto) 5.3, Eos % (Auto) 3.7, Baso % (Auto) 0.5, Neut # (Auto) 7.5, Lymph # (Auto) 2.4, [place] # (Auto) 0.6, Eos # (Auto) 0.4, Baso # (Auto) 0.1, S odium 134 L, Potassium 4.3, Chloride 103, Carbon Dioxide 25, Anion Gap 10.3, BUN 13, Creatinine 1.00, Estimated Creat Clear 171, Estimated GFR 88, Est GFR ( Amer) 106, Glucose 112 H, Calcium 10.7 H, Total Bilirubin 0.6, AST 31, ALT 34, Alkaline Phosphatase 51, Total Protein 7.6, Albumin 4.8, Globulin 2.8, Albumin/Globulin Ratio 1.7, Lipase 171, HCV Ab CLAUDE w/Rflx PCR Qn Negative, HIV Ag/Ab Combo Qual Negative 07/20/25 : Lactate 0.9 07/20/25 08:44 07/20/25 08:44 Orders (Tests/Meds): ED MEDICATIONS Generic Name Dose Route Start Last Admin Trade Name Freq PRN Reason Stop Dose Admin Sodium Chloride 10 ml 07/20/25 08:48 07/20/25 09:07 Sodium Chloride 0.9% 10ml Vial IV 08/19/25 08:47 10 ml NEEDED PRN Administration dilute protonix Discontinued Medications Generic Name Dose Route Start Last Admin Trade Name Freq PRN Reason Stop Dose Admin Belladonna Alkaloids 60 ml 07/20/25 08:48 07/20/25 09:05 Belladonna Alkaloids 60 Ml Ml PO 07/20/25 08:49 60 ml ONCE ONE Administration Iopamidol 75 ml 07/20/25 08:57 07/20/25 08:59 Iopamidol-370 (76%);100ml Bottle IV 07/20/25 08:58 75 ml ONCE ONE Administration Pantoprazole Sodium 40 mg 07/20/25 08:48 07/20/25 09:07 Pantoprazole 40mg Vial IV 07/20/25 08:49 40 mg ONCE ONE Administration Sodium Chloride 10 ml 07/20/25 08:57 07/20/25 08:58 Sodium Chloride 0.9% 10ml Syr (Rad Only) IV 07/20/25 08:58 10 ml ONCE ONE Administration ORDERS Category Date Time Status CT abdomen pelvis w con Stat Cat Scan 07/20/25 08:48 Completed CBC w/Auto Diff [Complete Blood Count Auto Diff] Stat Lab 07/20/25 08:44 Completed CMP [Comprehensive Metabolic Panel] Stat Lab 07/20/25 08:44 Completed HIV Combo Stat Lab 07/20/25 08:44 Completed Hepatitis C Ab Qual. W/ RFX Stat Lab 07/20/25 08:44 Completed Lactic Acid Stat Lab 07/20/25 Completed Lipase Stat Lab 07/20/25 08:44 Completed UA [Urinalysis and Microscopic] Stat Lab 07/20/25 08:32 Completed Medical Decision Narrative: Adelso Wilder is a 29F with a history of anxiety, gastric ulcer, significant acid reflux who presents the emergency department for complaints of coffee-ground emesis. Patient states that he was previously on omeprazole for 5 years, however 6 months ago, his PCP took him off of it due to concern for long- term effects. He states that his symptoms worsened after being taken off of it, so he started taking [id number] omeprazole and states that this helped some. He did run out of the czfh-stm-[id number] medication 2 days ago. Last night, he stated while sleeping, he had severe acid reflux and burning in his throat. He stated that he has vomited twice and it has been dark, coffee ground in nature. He denies any severe abdominal pain. He does report continued burning in his throat. He states that he was post to be scheduled for an EGD, however they never called to schedule an appointment. Patient states that he previously would drink bourbon, however has not had anything to drink over the last 2 weeks. On arrival, patient is hypertensive with blood pressure 170/92, heart are within normal limits, afebrile, oxygen saturation 96% SpO2. Physical exam, stated above, revealed overall well-appearing male in no distress. He is alert and answering questions appropriately. Abdomen is soft, nontender nondistended. Cardiopulmonary exam is unremarkable. Differential diagnosis includes, but is not limited to: Upper GI bleed, perforated gastric ulcer, GERD, esophagitis, among others. The most morbid conditions were considered and workup was based on these. Low concern for cardiac etiology as patient is not having chest pain and symptoms are consistent with previous acid reflux symptoms. Will treat with GI cocktail as well as 40 mg IV pantoprazole. Will obtain hematologic labs including CBC, CMP, lipase, lactic acid. CT imaging was interpreted by me personally. There is a sliding hiatal hernia but no evidence of gastric perforation. See radiology report for final details. Laboratory studies showed mild leukocytosis of 10.9 but no anemia, platelets within normal limits. Mild hyponatremia at 134 but otherwise unremarkable nonactionable. No SADAF. Calcium mildly elevated 10.7, which is likely from patient frequently using Tums, which he says temporarily helps his pain. Patient's lactate normal at 0.9. Lipase normal at 171. Urinalysis unremarkable nonactionable for blood or infection. On reassessment, patient remained stable and has had some improvement in his symptoms. I do feel that his symptomatology is best explained by gastritis versus esophagitis in the setting of a sliding hiatal hernia I would benefit from EGD and GI follow-up. Will refer patient to Dr. Perkins with gastroenterology. Will provide phone number for him to call if he does not hear from them in the next 2-3 business days. Patient will be prescribed Pepcid to help with his symptoms. Return precautions were given. All questions were answered. He demonstrated understanding and was in agreement this plan. He was then discharged from the emergency department in stable condition peer Critical Care Critical Care Time Critical Care Time: No
[2025-07-20] MEDS: SODIUM CHLORIDE 0.9% 10ML SYR (RAD ONLY) 10 ML IV (08:58)
[2025-07-20] MEDS: IOPAMIDOL-370 (76%);100ML BOTTLE 75 ML IV (08:59)
[2025-07-20] MEDS: BELLADONNA ALKALOIDS 60 ML ML PO (09:05)
[2025-07-20] MEDS: PANTOPRAZOLE 40MG VIAL 40 MG IV (09:07)
[2025-07-20] MEDS: SODIUM CHLORIDE 0.9% 10ML VIAL 10 ML IV (09:07)
[2025-07-20 09:15] LABS: Hematocrit 45.7 % (42.0-52.0); Hemoglobin 15.5 g/dL (14.1-18.0); Immature Granulocytes % 0.2 %; Mean Corpuscular HGB Conc 33.9 g/dL (31.8-35.4); Mean Corpuscular Hemoglobin 28.3 pg (27.0-31.2); Mean Corpuscular Volume 83.5 fl (80-94); Nucleated Red Blood Cells % 0 %; Platelet Count 299 K/mm3 (142-424); Red Blood Count 5.47 M/mm3 (4.60-6.20); Red Cell Distribution Width-SD 37.2 fL; White Blood Count 10.9 K/mm3 (4.8-10.8)
[2025-07-20 09:31] LABS: Alanine Aminotransferase 34 U/L (12-78); Albumin Level 4.8 g/dl (3.5-5.0); Albumin/Globulin Ratio 1.7 (1.1-1.8); Alkaline Phosphatase 51 U/L (38-126); Anion Gap 10.3 mEq/L (5-15); Aspartate Amino Transferase 31 U/L (17-59); Bilirubin,Total 0.6 mg/dl (0.2-1.3); Blood Urea Nitrogen 13 mg/dl (9-20); Calcium 10.7 mg/dl (8.4-10.2); Carbon Dioxide 25 mmol/L (22.0-30.0); Chloride 103 mmol/L (98-107); Creatinine Clearance Estimated 171 mL/min (50-200); Creatinine,Serum 1.00 mg/dl (0.66-1.25); Estimated Glomerular Filt Rate 88 ml/min (>60); GFR (African American) 106 ML/MIN (>60); Globulin 2.8 g/dL (1.3-3.2); Glucose 112 mg/dl (74-100); Lipase 171 U/L (23-300); Potassium 4.3 mmoL/L (3.5-5.1); Sodium 134 mmol/L (136-145); Total Protein,Serum 7.6 g/dl (6.3-8.2)
[2025-07-20 09:52] LABS: Microscopic, Urine URINE MICROSCOPIC (MICROSCOPIC)
[2025-07-20 10:05] LABS: Bilirubin,Urine Negative (Negative); Color,Urine YELLOW (Yellow); Glucose,Urine (UA) Negative (Negative); Ketones,Urine Negative (Negative); Leukocyte Esterase,Urine Negative (Negative); PH,Urine 7.5 (5.0-8.5); Protein,Urine Negative (Negative); Specific Gravity, Urine 1.020 (1.005-1.030); Urobilinogen,Urine 0.2 EU/dl (0.2)
[2025-07-20 10:26] LABS: WBC,Urine Occasional #/hpf (0-3)
[2025-07-20 10:34] LABS: Hepatitis C Ab Qual. W/ RFX NEGATIVE (Negative)
== END 2025-07-20 10:52 | disposition home or self-care (01) ==
PROVIDERS: Emergency Provider Student in an Organized Health Care Education/Training Program; PCP Nurse Practitioner Family
DX: K92.0 Hematemesis (principal); K44.9 Diaphragmatic hernia without obstruction or gangrene; K21.9 Gastro-esophageal reflux disease without esophagitis; F17.210 Nicotine dependence, cigarettes, uncomplicated
CPT/HCPCS: 74177; 80053; 81001; 83605; 83690; 85025; 86803; 87389; 96374; 99285; J2470; Q9967